=== PATIENT | male | born 1980 | race Caucasian/White ===

== ENCOUNTER 2020-02-10 11:46 | Emergency (ER) | payer OTHER ==
[~2020-02-10] VITALS: Ht 185.4 cm; Wt 95.3 kg
[2020-02-10 11:55] VITALS: BP 149/73
--- NOTE | 2020-02-10 12:00 | NUR ---
C/O R ARM PAIN S/P FALLING FROM A LADDER WHILE AT WORK. 10/ PAIN. CUT SHIRT OFF PATIENT AND THERE IS NOTABLE SWELLING & DEFORMITY TO R WRIST/FOREARM. CMS INTACT. +2 RADIAL PULSE NOTED TO RUE. CAP REFIL <3 SEC. PT DENIES ANY OTHER INJURY. DENIES LOC. STATES HE HAD A "HARD HAT" HELMET ON DURING THE FALL. BED IN LOW POSITION, SIDE RAIL UP X1. PROPPED PT R ARM WITH 3 BLANKETS & PILLOW FOR COMFORT. OFFERED ICE PACK BUT PT DECLINED.
--- NOTE | 2020-02-10 12:04 | NUR ---
Patient ambulated to bed 12. RN evaluating patient at bedside.
[2020-02-10] MEDS ORDERED: KETOROLAC 60 MG/2 ML VIAL IM ONE (12:05)
[2020-02-10] MEDS ORDERED: HYDROcodone/APAP 5/325 MG 1 TAB TAB PO ONE (12:05)
--- NOTE | 2020-02-10 12:05 | NUR ---
DR. YOU AT BEDSIDE EVALUATING PT
--- NOTE | 2020-02-10 12:45 | NUR ---
DR YOU AT BEDSIDE REEVALUATING PT
--- NOTE | 2020-02-10 12:46 | NUR ---
Note undone in EDM - 02/10/20 at 1249 by [email or web address] C/O R ARM PAIN S/P FALLING FROM A LADDER WHILE AT WORK. 07/30 PAIN. CUT SHIRT OFF PATIENT AND THERE IS NOTABLE SWELLING & DEFORMITY TO R WRIST/FOREARM. CMS INTACT. +2 RADIAL PULSE NOTED TO RUE. CAP REFIL <3 SEC. PT DENIES ANY OTHER INJURY. DENIES LOC. STATES HE HAD A "HARD HAT" HELMET ON DURING THE FALL. BED IN LOW POSITION, SIDE RAIL UP X1. PROPPED PT R ARM WITH 3 BLANKETS & PILLOW FOR COMFORT. OFFERED ICE PACK BUT PT DECLINED.
[2020-02-10] MEDS ORDERED: MORPHINE SULFATE 4 MG/ML SYR IM ONE (12:55)
[2020-02-10] MEDS ORDERED: ONDANSETRON 4 MG ODT PO ONE (12:55)
--- NOTE | 2020-02-10 12:55 | NUR ---
PT STATES PAIN IS STILL 6/[address] YOU MADE AWARE
[2020-02-10 13:50] VITALS: BP 103/60
--- NOTE | 2020-02-10 13:50 | NUR ---
Patient discharged with v/s stable. Written and verbal after care instructions given and explained. Patient alert, oriented and verbalized understanding of instructions. Ambulatory with steady gait. All questions addressed prior to discharge. ID band removed. Patient advised to follow up with PMD. Rx of Naprosyn 375mg, and Bailey 5mg was given. Patient educated on indication of medication including possible reaction and side effects. Opportunity to ask questions provided and answered.
== END 2020-02-10 13:50 | disposition home or self-care (01) ==
LOC: MED 11:46
DX: S52.501A Unspecified fracture of the lower end of right radius, initial encounter for closed fracture (principal); S52.601A Unspecified fracture of lower end of right ulna, initial encounter for closed fracture; W17.89XA Other fall from one level to another, initial encounter; Y93.89 Activity, other specified; Y92.89 Other specified places as the place of occurrence of the external cause; Y99.8 Other external cause status
CPT/HCPCS: 29125; 73090; 73110; 96372; 99284; J1885; J2270; Q0092; Q0162